=== PATIENT | female | born 1995 | race Two or more races ===

== ENCOUNTER 2018-10-18 13:37 | Inpatient (IN) | payer OTHER ==
[~2018-10-18] VITALS: Ht 160 cm; Wt 66.2 kg
[2018-10-18] VITALS (7 sets, daily range): BP systolic 95–126; BP diastolic 52–77
--- NOTE | 2018-10-18 13:40 | NUR ---
PT DELROY FROM HOME FOR H/A, N/V, REPORTS RAN OUT OF INSULIN X2 DAYS AGO; PT AAOX4, -SOB, NAD NOTED, VSS, PENDING MD HAWK
[2018-10-18 13:56] LABS: BASOPHILS # (AUTO) 0.1 /CMM (0.0-0.2); BASOPHILS % (AUTO) 0.6 % (0.0-2.0); HEMATOCRIT 52 % (33-45); HEMOGLOBIN 16.4 g/dL (11.5-14.8); LYMPHOCYTES # (AUTO) 2.3 /CMM (0.8-4.8); LYMPHOCYTES % (AUTO) 14.9 % (20.0-44.0); MEAN CORPUSCULAR HGB CONC 32 g/dl (31.0-36.0); MEAN CORPUSCULAR VOLUME 100 fL (82-100); MONOCYTES # (AUTO) 0.5 /CMM (0.1-1.30); MONOCYTES % (AUTO) 3.5 % (2.0-12.0); NEUTROPHILS # (AUTO) 12.3 /CMM (1.8-8.9); PLATELET COUNT (AUTO) 416 /CMM (150-450); RED BLOOD CELL COUNT(AUTO) 5.16 MIL/uL (4.0-5.2); WHITE BLOOD COUNT (AUTO) 15.2 K/uL (4.3-11.0)
[2018-10-18] MEDS ORDERED: IV NS 0.9% 1,000 ML BAG IV ONE ×2 (14:00)
[2018-10-18 14:12] LABS: BILIRUBIN,DIRECT 0.1 mg/dL (0.0-0.2); BILIRUBIN,TOTAL 0.5 mg/dL (0.2-1.0); CALCIUM, SERUM 8.9 mg/dL (8.5-10.1); TOTAL PROTEIN, SERUM 9.3 g/dL (6.4-8.2)
[2018-10-18] MEDS ORDERED: IV PREMIX 0.45% NS + KCL 1,000 ML IV ONE (14:21)
[2018-10-18] MEDS ORDERED: INSULIN REGULAR, HUMAN 100 UNIT in IV NS 0.9% 99 ML IV ONE ×2 (14:30)
[2018-10-18 14:32] LABS: APPEARANCE,URINE Clear (CLEAR); BILIRUBIN,URINE SMALL (NEGATIVE); BLOOD, URINE Trace-intact Ery/uL (NEGATIVE); COLOR,URINE Light yellow (YELLOW); KETONES,URINE >=160 (NEGATIVE); LEUKOCYTE ESTERASE ,URINE Negative (NEGATIVE); NITRITE, URINE Negative (NEGATIVE); PROTEIN,URINE 100 mg/dl (NEGATIVE); UGLUCOSE 500 MG/DL mg/dL (NEGATIVE); UROBILINOGEN,URINE 0.2 EU/dL (0.2)
[2018-10-18] MEDS ORDERED: INSU100I24 SQ (14:41)
[2018-10-18] MEDS ORDERED: INSU100V27 SQ (14:41)
[2018-10-18 14:47] LABS: BACTERIA,URINE Rare /HPF (None Seen); SQUAMOUS EPITHELIAL CELL,UR Many /HPF (None Seen)
[2018-10-18 14:48] LABS: RBC,URINE 0-2 /HPF (0-2); WBC,URINE 0-2 /HPF (0-3)
[2018-10-18 14:56] LABS: MAGNESIUM 2.1 mg/dL (1.8-2.4); PHOSPHORUS 5.2 mg/dL (2.5-4.9)
--- NOTE | 2018-10-18 15:08 | NUR ---
CALLED [employer] TRAP PULLER WAS PAGED.
[2018-10-18 15:10] LABS: ABG BASE EXCESS -27.6 mmol/L; ABG OXYGEN SATURATION 57.1 % (92.0-98.5); ABG PCO2 23.7 mmHg (35.0-45.0); ABG PO2 36.3 mmHg (75.0-100.0); COHb 0.3 % (0.5-1.5); MetHb 0.7 % (0.0-1.5); O2Hb 56.5 % (94.0-97.0); SITE, ABG LEFT ARM; VENT MODE, BG RA
[2018-10-18 15:18] LABS: BAND % (MANUAL) 2 % (0.0-5.0); NEUTROPHILS % (MANUAL) 81 (42-76)
[2018-10-18 15:19] LABS: LYMPHOCYTES % (MANUAL) 14 % (16-48); MONOCYTES % (MANUAL) 3 % (0-11.0)
[2018-10-18] MEDS ORDERED: ACETAMINOPHEN ES 500 MG TABLET PO STA (15:24)
[2018-10-18] MEDS ORDERED: ACETAMINOPHEN ES 500 MG TABLET ONE (15:24)
--- NOTE | 2018-10-18 15:25 | NUR ---
PT C/O OF UPPER BACK PAIN; REPORT TO DR. FREIRE. TO GIVEN TYLENOL 1GM PO X1 NOW.
--- NOTE | 2018-10-18 15:38 | NUR ---
REPORT GIVEN TO AFSATU RN FOR SAMM; PT WILL BE TRANSPORTED TO ICU VIA ACLS PROTOCOL
[2018-10-18] MEDS ORDERED: INSULIN REGULAR, HUMAN 100 UNIT in IV NS 0.9% 99 ML IV PRN ×2 (16:00)
[2018-10-18] MEDS ORDERED: ZOLPIDEM TARTRATE 5 MG TABLET PO PRN (16:00)
[2018-10-18] MEDS ORDERED: ONDANSETRON HCL/PF 4 MG/2 ML VIAL IVP PRN (16:00)
--- NOTE | 2018-10-18 16:00 | NUR ---
MANAGER GLOBAL COMMUNICATIONSWINDOWS SOFTWARE ENGINEER NOTES PT RECEIVED FROM ER NURSE FOR DKA. PT ADMITTED BY DR. SAMS. PT HAS A CURRENT BS OF 391. INSULIN DRIP NOTED FROM ER RUNNING AT 4UNITS/HR. WILL BEGIN NEW ORDER PER ALGORITHM PROVIDED BY MD. BILATERAL AC PERIPHERAL IVS NOTED TO BE PATENT AN INTACT. NO REDNESS OR SIGNS OF INFILTRATION NOTED. PT ORIENTED TO ROOM AND USE OF CALL LIGHT. BELONGINGS VERIFIED. PT PLACED ON 2L VIA NC SHE IS COMPLAINING OF SOB. PT SATING AT 100%. BP STABLE. PT SINUS TACH ON MONITOR WITH A HR OF 130. BED IN LOW LOCKED POSITION, SIDE RAILS UP X2, LINDA LIGHT WITHIN REACH. WILL BEGIN ADMISSION PROCESS AND AWAIT FOR FURTHER MD ORDERS
[2018-10-18] MEDS ORDERED: Potassium Chloride 20 MEQ in IV NS 0.9% 1,000 ML IV PRN (17:00)
[2018-10-18] MEDS: BLOOD SUGAR DIAGNOSTIC 1 EACH STRIP IN SCH ×7 (18:00→23:11)
--- NOTE | 2018-10-18 18:30 | NUR ---
TAX COMMISSIONER NOTES: IVF ORDER PT'S CURRENT BS IS 118. DR SAMS CONTACTED. ORDERS NOTED TO CHANGE PT'S IVF TO D5WNS +20MEQ AT 150ML.HR.
--- NOTE | 2018-10-18 19:15 | NUR ---
PUMP MECHANIC CLOSING NOTES PT REMAINS STABLE. SHE HAS A CURRENT BS OF 155. INSULIN DRIP CURRENTLY RUNNING AT 0.5UNTIS/HR. SHE DENIES ANY PAIN AT THIS TIME. SHE REMAINS SINUS TACH ON THE MONITOR WITH A CURRENT HR OF 117. INVASIVE LINES REMAIN PATENT AND INTACT. SAFETY MEASURES REMAIN IN PLACE. ENDORSED TO NIGHTSHIFT RN FOR SAMM
[2018-10-18 19:54] LABS: CALCIUM, SERUM 8.1 mg/dL (8.5-10.1); CREATININE 0.8 mg/dL (0.6-1.3); POTASSIUM 5.1 mmol/L (3.5-5.1)
[2018-10-18] MEDS: Potassium Chloride 20 MEQ in IV D5/ 0.9% NACL 1,000 ML IV PRN (19:55)
[2018-10-18] MEDS: ACETAMINOPHEN 325 MG TABLET PO PRN (20:07)
[2018-10-18] MEDS: FAMOTIDINE/PF INJ 20 MG/2 ML VIAL IV SCH (20:07)
[2018-10-18 23:40] LABS: CALCIUM, SERUM 7.7 mg/dL (8.5-10.1); CREATININE 0.8 mg/dL (0.6-1.3); POTASSIUM 3.9 mmol/L (3.5-5.1)
[2018-10-19] VITALS (25 sets, daily range): BP systolic 86–120; BP diastolic 45–72
[2018-10-19] MEDS: BLOOD SUGAR DIAGNOSTIC 1 EACH STRIP IN SCH ×24 (00:19→23:08)
[2018-10-19 03:04] LABS: BASOPHILS % (AUTO) 0.4 % (0.0-2.0); HEMATOCRIT 40 % (33-45); HEMOGLOBIN 13.8 g/dL (11.5-14.8); LYMPHOCYTES # (AUTO) 2.4 /CMM (0.8-4.8); LYMPHOCYTES % (AUTO) 22.4 % (20.0-44.0); MEAN CORPUSCULAR HGB CONC 34 g/dl (31.0-36.0); MEAN CORPUSCULAR VOLUME 94 fL (82-100); MONOCYTES % (AUTO) 9.1 % (2.0-12.0); NEUTROPHILS # (AUTO) 7.3 /CMM (1.8-8.9); NEUTROPHILS % (AUTO) 68.1 % (43.0-81.0); PLATELET COUNT (AUTO) 284 /CMM (150-450); RED BLOOD CELL COUNT(AUTO) 4.29 MIL/uL (4.0-5.2); WHITE BLOOD COUNT (AUTO) 10.7 K/uL (4.3-11.0)
[2018-10-19 03:19] LABS: BILIRUBIN,TOTAL 0.4 mg/dL (0.2-1.0); CALCIUM, SERUM 8.1 mg/dL (8.5-10.1); CREATININE 0.8 mg/dL (0.6-1.3); MAGNESIUM 1.6 mg/dL (1.8-2.4); PHOSPHORUS 1.9 mg/dL (2.5-4.9); POTASSIUM 3.7 mmol/L (3.5-5.1)
[2018-10-19 03:27] LABS: THYROID STIMULATING HORMONE 0.938 uIU/mL (0.358-3.74)
[2018-10-19] MEDS: ACETAMINOPHEN 325 MG TABLET PO PRN ×3 (04:21→22:12)
--- NOTE | 2018-10-19 06:51 | NUR ---
PT REMAINS IN NO ACUTE DISTRESS IN BED. PT DID NOT HAVE ANY SIGNIFICANT CHANGE IN CONDITION DURING SHIFT. ALL NEEDS MET, ALL ORDERS CARRIED OUT. PT REMAINS ON INSULIN DRIP @ A RATE OF 1 UNIT/HR. WILL ENDORSE CARE TO AM RN FOR CONTINUITY OF CARE.
[2018-10-19] MEDS: Potassium Chloride 20 MEQ in IV D5/ 0.9% NACL 1,000 ML IV PRN ×3 (07:10→20:54)
--- NOTE | 2018-10-19 07:10 | NUR ---
RN INITIAL NOTES RECEIVED PT AWAKE, A/OX4. ON ROOM AIR. NO RESPIRATORY DISTRESS NOTED. NO SOB NOTED. DENIES ANY PAIN. IVF LINES IN PLACE. IVF INFUSING. PT ON INSULIN DRIP, BLOOD GLUCOSE CHECK Q1. PT COMFORTABLE. CALL LIGHT WITHIN REACH. WILL MONITOR.
[2018-10-19] MEDS: FAMOTIDINE/PF INJ 20 MG/2 ML VIAL IV SCH ×2 (08:16→20:00)
[2018-10-19 08:22] LABS: CALCIUM, SERUM 8.3 mg/dL (8.5-10.1); CREATININE 0.8 mg/dL (0.6-1.3)
[2018-10-19] MEDS ORDERED: PANTOPRAZOLE 40 MG VIAL IV SCH (09:00)
--- NOTE | 2018-10-19 09:00 | NUR ---
RN NOTES SEEN AND EXAMINED BY DR SAMS. MD AWARE OF LAB VALUES. PT REMAINS ON INSULIN DRIP. ON IVF. KEPT ON NPO. PER MD, KEEP INSULIN DRIP UNTIL ANION GAP IS 14. WILL CLOSELY MONITOR
[2018-10-19] MEDS: Magnesium 1GM/D5W 100ML PREMIX 100 ML IV SCH ×2 (12:21→13:29)
[2018-10-19] MEDS ORDERED: Sodium Phosphate 15 MMOL in IV D5W 250 ML IV ONE (13:00)
[2018-10-19 13:29] LABS: CALCIUM, SERUM 8.4 mg/dL (8.5-10.1); CREATININE 0.7 mg/dL (0.6-1.3); POTASSIUM 3.7 mmol/L (3.5-5.1)
[2018-10-19 17:11] LABS: CALCIUM, SERUM 7.9 mg/dL (8.5-10.1); CREATININE 0.7 mg/dL (0.6-1.3); POTASSIUM 3.3 mmol/L (3.5-5.1)
[2018-10-19] MEDS ORDERED: POTASSIUM CHLORIDE 20 MEQ TAB.PRT.SR PO ONE (18:00)
--- NOTE | 2018-10-19 18:42 | NUR ---
RN CLOSING NOTES PT REMAINS STABLE. NO SIGNIFICANT CHANGE NOTED. REMAINS ON INSULIN PUMP. KEPT CLEAN AND DRY. ASSISTANCE PROVIDED. ALL NEEDS ATTENDED AND MET. CALL LIGHT WITHIN REACH. WILL ENDORSE FOR CONTINUITY OF CARE.
[2018-10-19 19:52] LABS: CALCIUM, SERUM 8.1 mg/dL (8.5-10.1); CREATININE 0.6 mg/dL (0.6-1.3); POTASSIUM 3.5 mmol/L (3.5-5.1)
[2018-10-19 21:32] LABS: CREATININE 0.6 mg/dL (0.6-1.3); POTASSIUM 3.6 mmol/L (3.5-5.1)
[2018-10-19 23:59] LABS: CALCIUM, SERUM 8.2 mg/dL (8.5-10.1); CREATININE 0.6 mg/dL (0.6-1.3)
[2018-10-20] VITALS (21 sets, daily range): BP systolic 94–141; BP diastolic 49–102
[2018-10-20] MEDS: BLOOD SUGAR DIAGNOSTIC 1 EACH STRIP IN SCH ×18 (00:11→17:39)
[2018-10-20 02:13] LABS: CALCIUM, SERUM 7.8 mg/dL (8.5-10.1); CREATININE 0.6 mg/dL (0.6-1.3); POTASSIUM 3.7 mmol/L (3.5-5.1)
[2018-10-20] MEDS: Potassium Chloride 20 MEQ in IV D5/ 0.9% NACL 1,000 ML IV PRN ×2 (03:51→10:54)
[2018-10-20 03:58] LABS: CALCIUM, SERUM 8.1 mg/dL (8.5-10.1); CREATININE 0.6 mg/dL (0.6-1.3); POTASSIUM 3.8 mmol/L (3.5-5.1)
[2018-10-20 05:21] LABS: BASOPHILS % (AUTO) 0.5 % (0.0-2.0); EOSINOPHILS % (AUTO) 0.5 % (0.0-6.0); HEMATOCRIT 36 % (33-45); HEMOGLOBIN 12.1 g/dL (11.5-14.8); LYMPHOCYTES # (AUTO) 2.2 /CMM (0.8-4.8); LYMPHOCYTES % (AUTO) 42.9 % (20.0-44.0); MEAN CORPUSCULAR HGB CONC 34 g/dl (31.0-36.0); MEAN CORPUSCULAR VOLUME 93 fL (82-100); MONOCYTES # (AUTO) 0.5 /CMM (0.1-1.30); MONOCYTES % (AUTO) 9.9 % (2.0-12.0); NEUTROPHILS # (AUTO) 2.4 /CMM (1.8-8.9); NEUTROPHILS % (AUTO) 46.2 % (43.0-81.0); PLATELET COUNT (AUTO) 235 /CMM (150-450); RED BLOOD CELL COUNT(AUTO) 3.85 MIL/uL (4.0-5.2); WHITE BLOOD COUNT (AUTO) 5.2 K/uL (4.3-11.0)
[2018-10-20 05:31] LABS: CALCIUM, SERUM 8.1 mg/dL (8.5-10.1); CREATININE 0.6 mg/dL (0.6-1.3); MAGNESIUM 1.7 mg/dL (1.8-2.4); PHOSPHORUS 1.3 mg/dL (2.5-4.9); POTASSIUM 3.6 mmol/L (3.5-5.1)
--- NOTE | 2018-10-20 06:39 | NUR ---
PT REMAINS IN NO ACUTE DISTRESS IN BED. PT DID NOT HAVE ANY SIGNIFICANT CHANGE IN CONDITION DURING SHIFT. ALL NEEDS MET, ALL ORDERS CARRIED OUT. PT REMAINS ON INSULIN DRIP @ A RATE OF 0.5 UNIT/HR. WILL ENDORSE CARE TO AM RN FOR CONTINUITY OF CARE.
[2018-10-20 08:11] LABS: CALCIUM, SERUM 8.3 mg/dL (8.5-10.1); CREATININE 0.6 mg/dL (0.6-1.3); POTASSIUM 3.7 mmol/L (3.5-5.1)
[2018-10-20] MEDS: FAMOTIDINE/PF INJ 20 MG/2 ML VIAL IV SCH (09:06)
--- NOTE | 2018-10-20 09:17 | NUR ---
LOSS PREVENTION COORDINATOR NOTE RCVD PT AWAKE AND ALERT SHOWING NO SIGNS OF DISTRESS OR C/O PAIN, SR ON MONITOR, ON RA TOLERATING WELL, REMAINS NPO ON ICE CHIPS IF NEEDED, AMBULATORY WITH STEADY GAIT. BILATERAL AC IV SITES C/D/I/PATENT, NO SIGNS OF INFILTRATION/PHLEBITIS OBSERVED UPON FLUSHING, IVF INFUSING ORDERED, INSULIN GTT TITRATED PER PROTOCOL. WILL CONTINUE TO MONITOR PT FOR SAFETY AND COMFORT, BED IN LOW AND LOCKED POSITION, CALL LIGHT WITHIN REACH, HEAD OF BED ELEVATED. ABLE TO REPOSITION SELF WHILE IN BED. PT OFFERED TO TRANSFER TO CHAIR BUT DECLINED.
[2018-10-20 10:13] LABS: ALBUMIN 2.7 g/dL (3.4-5.0); BILIRUBIN,TOTAL 0.2 mg/dL (0.2-1.0); CALCIUM, SERUM 8.3 mg/dL (8.5-10.1); CREATININE 0.6 mg/dL (0.6-1.3); POTASSIUM 3.7 mmol/L (3.5-5.1); TOTAL PROTEIN, SERUM 6.2 g/dL (6.4-8.2)
[2018-10-20] MEDS: Magnesium 1GM/D5W 100ML PREMIX 100 ML IV SCH ×2 (11:31→12:48)
[2018-10-20] MEDS: ACETAMINOPHEN 325 MG TABLET PO PRN (11:32)
[2018-10-20] MEDS ORDERED: INSULIN GLARGINE, 100 UNIT/ML CARTRIDGE SQ SCH ×2 (12:00→13:00)
[2018-10-20] MEDS ORDERED: INSULIN REGULAR, HUMAN 100 UNIT/ML 3 ML VIAL SQ PRN (12:00)
[2018-10-20] MEDS ORDERED: DEXTROSE 50%-WATER 50 ML DISP.SYRIN IV PRN (12:00)
[2018-10-20] MEDS ORDERED: *INSULIN REGULAR(HUMULIN R)HUM 100 UNIT/ML VIAL SQ PRN (12:00)
--- NOTE | 2018-10-20 15:46 | NUR ---
ROTATIONAL MOULDING OPERATOR NOTE DR. SAMS IN UNIT EARLIER TODAY AWARE OF PT'S MG AND PHOS BEING LOW. MG REPLACED NO ORDERS FOR PHOS REPLACEMENT. RECOMMENDED TO DISCONTINUE INSULIN GTT 1.5 HR AFTER LANTUS INSULIN ADMINISTERED. THIS WAS DONE PER ORDER. PT TOLERATED PO INTAKE WELL, ENCOURAGED TO INCREASED FLUID INTAKE. IVF DISCONTINUED ORDERED.
--- NOTE | 2018-10-20 16:25 | NUR ---
ASSOCIATE PROGRAMMER NOTE PT'S CARE ENDORSED TO SHAAN ARTHUR OVER THE PHONE, PT DOWNGRADED TO MED-SURG STATUS. TRANSPORTED VIA WHEELCHAIR TO ROOM 205 SHOWING NO SIGNS OF DISTRESS.
--- NOTE | 2018-10-20 16:45 | NUR ---
RN NOTES RECEIVED PATIENT FROM ICU IN STABLE CONDITION. REPORT GIVEN BY KRISTA GARDUNO. PATIENT WITH STABLE VITAL SIGNS. NO ACUTE DISTRESS NOTED. ALERT ORIENTED X 4. SAFETY MEASURES IN PLACE. CALL LIGHT WITHIN REACH. WILL CONTINUE TO MONITOR ACCORDINGLY.
[2018-10-20] MEDS ORDERED: K PHOS NEUTRAL 250 MG TABLET PO ONE (17:30)
--- NOTE | 2018-10-20 19:00 | NUR ---
MS RN NOTES PATIENT IN BED ALERT ORIENTED X 4. NO ACUTE DISTRESS NOTED. BREATHING UNLABORED. NO COMPLAINT OF PAIN. IV ACCESS PATENT AND INTACT, NO REDNESS NO SWELLING NOTED. DUE MEDICATIONS GIVEN, NO ASE NOTED. NEEDS ATTENDED AND ANTICIPATED. KEPT CLEAN DRY AND COMFORTABLE. SAFETY MEASURES IN PLACE. CALL LIGHT WITHIN REACH. WILL ENDORSE TO NIGHT NURSE FOR CONTINUITY OF CARE.
[2018-10-20 19:22] LABS: CREATININE 0.7 mg/dL (0.6-1.3); POTASSIUM 3.5 mmol/L (3.5-5.1)
--- NOTE | 2018-10-20 19:30 | NUR ---
MS RN NOTES RECEIVED PATIENT AWAKE IN BED WITH BOYFRIEND AT BEDSIDE. CALL LIGHT WITHIN REACH. NO DISTRESS NOTED. PERIPHERAL LINES IN LEFT AND RIGHT AC INTACT AND PATENT. PATIENT REQUESTING TO BE DISCHARGED HOME TONIGHT. PER PATIENT SHE'S FEELING BETTER AND DOESN'T NEED TO SPEND ANOTHER NIGHT AT THE HOSPITAL. INFORMED PATIENT THERE ARE NO DISCHARGE ORDERS OF NOW. EXPLAINED THAT SINCE SHE WAS JUST DISCHARGED FROM ICU, SHE WOULD STILL NEED TO BE MONITORED AND COULD POSSIBLY BE DISCHARGED BY TOMORROW. PATIENT VERBALIZED UNDERSTANDING AND SAID SHE WOULD THINK ABOUT STAYING ANOTHER NIGHT BUT IF NOT, WOULD SIGN AN AMA TO GO HOME. NO C/O PAIN OR DISCOMFORT. BED IN LOW LOCK SETTING. ROOM FREE OF CLUTTER AND BELONGINGS KEPT NEAR BEDSIDE. WILL CONTINUE TO MONITOR.
--- NOTE | 2018-10-20 20:27 | NUR ---
PATIENT DISCHARGED HOME VIA AMA DESPITE EXPLANATION OF RISKS AND BENEFITS. PER PATIENT, "I DON'T WANT TO BE HERE FOR ANYMORE AFTER SHOCK E[place]THQUAKES." VITALS STABLE. NO DISTRESS NOTED. PATIENT REFUSED SKIN ASSESSMENT AND DISCHARGE EXIT CARE. PATIENT WAS INSISTENT ON LEAVING HOSPITAL SOON POSSIBLE. PERIPHERAL LINES IN BOTH AC REMOVED. NO ACTIVE BLEEDING NOTED. PATIENT ESCORTED TO LOBBY AND ACCOMPANIED BY BOYFRIEND. PATIENT LEFT VIA PRIVATE VEHICLE IN STABLE CONDITION
== END 2018-10-20 20:27 | disposition home or self-care (01) | DRG 638 ==
LOC: ER 13:39 → ICU 14:39 → MEDSG2 10-20 16:18
PROVIDERS: ADMIT Student in an Organized Health Care Education/Training Program; ATTEND Student in an Organized Health Care Education/Training Program
DX: E10.10 Type 1 diabetes mellitus with ketoacidosis without coma (principal); E44.1 Mild protein-calorie malnutrition; E87.1 Hypo-osmolality and hyponatremia; Z79.4 Long term (current) use of insulin; Z91.14 Patient's other noncompliance with medication regimen; E83.42 Hypomagnesemia; D72.829 Elevated white blood cell count, unspecified; E83.39 Other disorders of phosphorus metabolism
CPT/HCPCS: 36415; 36600; 71045-TC; 80048-TC; 80053-TC; 80061-TC; 80076-TC; 81000-TC; 82803-TC; 82962-TC; 83690-TC; 83735-TC; 84100-TC; 84439-TC; 84443-TC; 84702-TC; 84703-TC; 85025-TC; 87081-TC; 87086-TC; 94760-TC; 94799-TC; A9563; G0378; J1815; J3475; J3480; J3490; J7030; J7042; J7060

== ENCOUNTER 2021-08-23 11:23 | Emergency (ER) | payer OTHER ==
[~2021-08-23] VITALS: Ht 157.5 cm; Wt 77.6 kg
[~2021-08-23 11:23] MED LIST: INSU100I24 SQ; INSU100V27 SQ
[2021-08-23 11:26] VITALS: BP 150/98
--- NOTE | 2021-08-23 11:32 | NUR ---
BIBS C/O L PINKY TOE PAIN "HIT THE CORNER OF DOOR FRAME" OBVIOUS DEFORMITY. RATES PAIN 10/25. WILL CONTINUE TO MONITOR THE PATIENT.
--- NOTE | 2021-08-23 11:41 | NUR ---
PT SEEN AND EXAMINED BY .
--- NOTE | 2021-08-23 12:12 | NUR ---
PAINTER HAND AT BEDSIDE FOR XRAY.
[2021-08-23] MEDS: LIDOCAINE HCL/PF 1% 30 ML VIAL TP ONE ×2 (12:30→12:40)
[2021-08-23] MEDS ORDERED: LIDOCAINE /MPF 1% VIAL 5 ML VIAL ONE (12:31)
--- NOTE | 2021-08-23 12:52 | NUR ---
CALLED XRAY TO FOLLOW UP XRAY RESULT.
--- NOTE | 2021-08-23 13:44 | NUR ---
Patient discharged to home in stable condition. Written and verbal after care instructions given. Patient verbalizes understanding of instruction.
== END 2021-08-23 13:45 | disposition home or self-care (01) ==
LOC: ER 11:24
DX: S92.512A Displaced fracture of proximal phalanx of left lesser toe(s), initial encounter for closed fracture (principal); E11.9 Type 2 diabetes mellitus without complications; Z79.4 Long term (current) use of insulin; W22.8XXA Striking against or struck by other objects, initial encounter; Y93.89 Activity, other specified; Y92.89 Other specified places as the place of occurrence of the external cause; Y99.8 Other external cause status
CPT/HCPCS: 28515; 73660 ×2; 99284; J3490 ×2